=== PATIENT | male | born 1970 | race Caucasian/White ===

== ENCOUNTER → 2018-03-12 | Outpatient (CLI) | payer BC ==
--- NOTE | 2018-03-12 16:27 | Diagnostic Imaging Report ---
INDICATION: Rectal carcinoma with subsequent treatment. Study is performed for restaging. TECHNIQUE: Serum blood glucose level at the time of injection is 109 mg/dL. Patient was administered 11.9 mCi F-18 FDG intravenously in the right antecubital location and PET imaging was performed from the top of the skull through the mid thighs. Noncontrast CT was also performed for attenuation correction and anatomic correlation. COMPARISON: No prior studies are available for comparison. FINDINGS: There is symmetric activity throughout the brain. There is normal symmetric activity within Waldeyer's ring of the neck. No CT correlate is seen. There is also fairly homogeneous hypermetabolism throughout the thyroid, both the right and left lobes. No CT correlate is seen but thyroid ultrasound may be useful for further evaluation. No hypermetabolism within the chest is seen. There are no hypermetabolic lymph nodes in the mediastinum or damari. Pulmonary parenchyma is unremarkable. Abdomen and pelvis demonstrate physiologic activity within the liver and spleen as well as within the GI and tracts. There is an area of moderate hypermetabolism in the region of the distal stomach near the gastric outlet. SUV max at this location is approximately 6. Correlating with CT, there is some significant soft tissue thickening at this location. No other abnormal foci are detected. The pelvis is unremarkable. No hypermetabolism in the region of the rectum is identified. No hypermetabolic lymph nodes in the pelvis are seen. IMPRESSION: 1. Symmetric uptake within both lobes of the thyroid gland, likely physiologic. Thyroid ultrasound would be recommended for further evaluation. 2. Abnormal hypermetabolism in the distal stomach near the gastric outlet with CT correlate showing moderate soft tissue thickening. Gastric malignancy versus gastritis or peptic ulcer disease cannot be entirely excluded. Correlation with endoscopy is recommended. The remainder of the study is unremarkable. Dictated by: Dictated on workstation # [id number]
== END ==
LOC: RAD 11:59
PROVIDERS: ATTEND Internal Medicine Hematology & Oncology
DX: C20 Malignant neoplasm of rectum (principal); C83.83 Other non-follicular lymphoma, intra-abdominal lymph nodes